=== PATIENT | male | born 1995 | race American Indian/Alaskan Native ===

== ENCOUNTER 2022-05-20 07:43 | Emergency (ER) | payer SELFPAY ==
--- NOTE | 2022-05-20 10:16 | Emergency Department Report ---
ED Abdominal Pain HPI - General Chief Complaint: Nausea/Vomiting/Diarrhea Stated Complaint: VOMITTING/CHILLS/BACK PAIN Time Seen by Provider: 05/20/22 10:05 Source: patient Mode of arrival: Ambulatory Limitations: No Limitations - History of Present Illness Initial Comments: Patient is a 26-year-old male who presented to the emergency room with severe a bdominal pain. He describes it as left side pain. The pain did not seem consistent with that of a kidney stone. He denied any dysuria. He has no history of kidney stones. Denies any penile discharge. He also had nausea and vomiting. He was writhing on arrival. He also had rigors when he got here. His vital signs in triage were normal. Given his rigors I had the nurses repeat the vitals and he still had no fever. Patient denies having had any abdominal pain such as this in the past. He denies prior abdominal surgeries. Denies fever at home. Denies diarrhea or constipation. Patient does not have a PCP. Patient is on no home medications. -: Gradual, hour(s) Severity scale (0 -10): 10 Quality: aching Consistency: constant Improves With: nothing Worsens With: nothing Associated Symptoms: denies other symptoms, nausea, vomiting. denies: diarrhea, fever, chills, constipation, dysuria, hematemesis, hematochezia, melena, hematuria, anorexia, syncope - Related Data Allergies Allergy/AdvReac Type Severity Reaction Status Date / Time No Known Allergies Allergy Verified 05/20/22 07:48 ED Review of Systems ROS: Stated complaint: VOMITTING/CHILLS/BACK PAIN Other details as noted in HPI Comment: All other systems reviewed and negative ED Past Medical Hx - Past Medical History Previous Medical History?: No - Surgical History Past Surgical History?: No - Family History Family history: other (Father of cardiomyopathy, mother is alive) - Social History Smoking Status: Current Every Day Smoker Substance Use Type: Marijuana (Patient denies anything other than marijuana), Ot her (Denies alcohol use) ED Physical Exam - General Limitations: No Limitations General appearance: alert, in no apparent distress - Head Head exam: Present: atraumatic, normocephalic - Eye Eye exam: Present: normal appearance - ENT ENT exam: Present: mucous membranes moist - Neck Neck exam: Present: normal inspection - Respiratory Respiratory exam: Present: normal lung sounds bilaterally. Absent: respiratory distress - Cardiovascular Cardiovascular Exam: Present: regular rate, normal rhythm. Absent: systolic murmur, diastolic murmur, rubs, gallop - GI/Abdominal GI/Abdominal exam: Present: soft, tenderness, guarding, diminished bowel sounds - Rectal Rectal exam: Present: deferred - Extremities Exam Extremities exam: Present: normal inspection - Back Exam Back exam: Present: normal inspection - Neurological Exam Neurological exam: Present: alert, oriented X3 - Psychiatric Psychiatric exam: Present: normal affect, normal mood - Skin Skin exam: Present: warm, dry, intact, normal color. Absent: rash ED Course Vital Signs 05/20/22 05/20/22 05/20/22 07:44 10:51 11:48 Temperature 98.3 F 98.9 F Pulse Rate 63 78 Respiratory 16 18 Rate Blood Pressure 132/77 107/51 [Right] O2 Sat by Pulse 100 98 98 Oximetry - Reevaluation(s) Reevaluation #1: 05/20/22 14:[address] Freitas Reevaluation #2: 05/20/22 14:30 Dr. Mattson at bedside ED Medical Decision Making - Lab Data Result diagrams: 05/20/22 10:32 05/20/22 10:32 - Radiology Data Radiology results: report reviewed, image reviewed See report - Medical Decision Making Labs 05/20/22 05/20/22 05/20/22 10:20 10:20 10:32 WBC 17.9 H RBC 4.58 Hgb 15.8 H Hct 45.5 MCV 99 H MCH 35 H MCHC 35 H RDW 13.3 Plt Count 260 Add Manual Diff Complete Total Counted 100 Seg Neutrophils % First Coat Sander Seg Neuts % (Manual) 85.0 H Band Neutrophils % 1.0 Lymphocytes % (Manual) 5.0 L Reactive Lymphs % (Man) 1.0 Monocytes % (Manual) 8.0 H Eosinophils % (Manual) 0 Basophils % (Manual) 0 Metamyelocytes % 0 Myelocytes % 0 Promyelocytes % 0 Blast Cells % 0 Nucleated RBC % Not Reportable Seg Neutrophils # Man 15.2 H Band Neutrophils # 0.2 Lymphocytes # (Manual) 0.9 L Abs React Lymphs (Man) 0.2 Monocytes # (Manual) 1.4 H Eosinophils # (Manual) 0.0 Basophils # (Manual) 0.0 Metamyelocytes # 0.0 Myelocytes # 0.0 Promyelocytes # 0.0 Blast Cells # 0.0 WBC Morphology Not Reportable Hypersegmented Neuts Not Reportable Hyposegmented Neuts Not Reportable Hypogranular Neuts Not Reportable Smudge Cells Not Reportable Toxic Granulation Not Reportable Toxic Vacuolation Not Reportable Dohle Bodies Not Reportable Pelger-Huet Anomaly Not Reportable Marli Rods Not Reportable Platelet Estimate Consistent w auto Clumped Platelets Not Reportable Plt Clumps, EDTA Not Reportable Large Platelets Not Reportable Giant Platelets Not Reportable Platelet Satelliting Not Reportable Plt Morphology Comment Not Reportable RBC Morphology Normal Dimorphic RBCs Not Reportable Polychromasia Not Reportable Hypochromasia Not Reportable Poikilocytosis Not Reportable Anisocytosis Not Reportable Microcytosis Not Reportable Macrocytosis Not Reportable Spherocytes Not Reportable Pappenheimer Bodies Not Reportable Sickle Cells Not Reportable Target Cells Not Reportable Tear Drop Cells Not Reportable Ovalocytes Not Reportable Helmet Cells Not Reportable Aguilar-Moncure Bodies Not Reportable [place] Rings Not Reportable [place] Cells Not Reportable Bite Cells Not Reportable Crenated Cell Not Reportable Elliptocytes Not Reportable Acanthocytes (Spur) Not Reportable Rouleaux Not Reportable Hemoglobin C Crystals Not Reportable Schistocytes Not Reportable Malaria parasites Not Reportable Gerry Bodies Not Reportable Hem Pathologist Commnt No Sodium Potassium Chloride Carbon Dioxide Anion Gap BUN Creatinine Estimated GFR BUN/Creatinine Ratio Glucose Calcium Total Bilirubin AST ALT Alkaline Phosphatase Total Creatine Kinase Total Protein Albumin Albumin/Globulin Ratio Lipase Urine Color Yellow Urine Turbidity Slightly-cloudy Urine pH 7.0 Ur Specific Phil[place] 1.019 Urine Protein 30 mg/dl Urine Glucose (UA) Neg Urine Ketones Tr Urine Blood Mod Urine Nitrite Neg Urine Bilirubin Neg Urine Urobilinogen 4.0 Ur Leukocyte Esterase Neg Urine WBC (Auto) 1.0 Urine RBC (Auto) 117.0 U Epithel Cells (Auto) < 1.0 Calcium Oxalate Crystal Few Urine Mucus 3+ Urine Opiates Screen Negative Urine Methadone Screen Negative Ur Barbiturates Screen Negative Ur Phencyclidine Scrn Negative Ur Amphetamines Screen Positive U Benzodiazepines Scrn Negative Urine Cocaine Screen Negative U Marijuana (THC) Screen Positive Drugs of Abuse Note Disclamer 05/20/22 05/20/22 10:32 10:32 WBC RBC Hgb Hct MCV MCH MCHC RDW Plt Count Add Manual Diff Total Counted Seg Neutrophils % Seg Neuts % (Manual) Band Neutrophils % Lymphocytes % (Manual) Reactive Lymphs % (Man) Monocytes % (Manual) Eosinophils % (Manual) Basophils % (Manual) Metamyelocytes % Myelocytes % Promyelocytes % Blast Cells % Nucleated RBC % Seg Neutrophils # Man Band Neutrophils # Lymphocytes # (Manual) Abs React Lymphs (Man) Monocytes # (Manual) Eosinophils # (Manual) Basophils # (Manual) Metamyelocytes # Myelocytes # Promyelocytes # Blast Cells # WBC Morphology Hypersegmented Neuts Hyposegmented Neuts Hypogranular Neuts Smudge Cells Toxic Granulation Toxic Vacuolation Dohle Bodies Pelger-Huet Anomaly Marli Rods Platelet Estimate Clumped Platelets Plt Clumps, EDTA Large Platelets Giant Platelets Platelet Satelliting Plt Morphology Comment RBC Morphology Dimorphic RBCs Polychromasia Hypochromasia Poikilocytosis Anisocytosis Microcytosis Macrocytosis Spherocytes Pappenheimer Bodies Sickle Cells Target Cells Tear Drop Cells Ovalocytes Helmet Cells Aguilar-Moncure Bodies [place] Rings [place] Cells Bite Cells Crenated Cell Elliptocytes Acanthocytes (Spur) Rouleaux Hemoglobin C Crystals Schistocytes Malaria parasites Gerry Bodies Hem Pathologist Commnt Sodium 138 Potassium 4.3 Chloride 99.1 Carbon Dioxide 27 Anion Gap 16 BUN 15 Creatinine 0.8 Estimated GFR > 60 BUN/Creatinine Ratio 19 Glucose 98 Calcium 10.2 Total Bilirubin 3.50 H AST 25 ALT 19 Alkaline Phosphatase 62 Total Creatine Kinase 156 Total Protein 7.4 Albumin 5.1 H Albumin/Globulin Ratio 2.2 Lipase 16 Urine Color Urine Turbidity Urine pH Ur Specific Phil[place] Urine Protein Urine Glucose (UA) Urine Ketones Urine Blood Urine Nitrite Urine Bilirubin Urine Urobilinogen Ur Leukocyte Esterase Urine WBC (Auto) Urine RBC (Auto) U Epithel Cells (Auto) Calcium Oxalate Crystal Urine Mucus Urine Opiates Screen Urine Methadone Screen Ur Barbiturates Screen Ur Phencyclidine Scrn Ur Amphetamines Screen U Benzodiazepines Scrn Urine Cocaine Screen U Marijuana (THC) Screen Drugs of Abuse Note Vital Signs 05/20/22 05/20/22 05/20/22 07:44 10:51 11:48 Temperature 98.3 F 98.9 F Pulse Rate 63 78 Respiratory 16 18 Rate Blood Pressure 132/77 107/51 [Right] O2 Sat by Pulse 100 98 98 Oximetry Labs noted. WBC elevated. UA noted. 2 L of normal saline, morphine, Zofran, And cefepime given. CT noted Staffed with Dr. Mustapha Torres has come to the bedside and evaluated the patient. He is can have a serial CT scan at 1630. 1451 patient has left AMA. He has been advised not to leave. He knows that he has a life-threatening condition that could result in perforation of his bowel resulting in imminent . He states that such as he has to take. AMA form signed and filed by nursing staff. - Differential Diagnosis Rule out kidney stone, cholecystitis, bowel obstruction/perforation Critical care attestation.: If time is entered above; I have spent that time in minutes in the direct care of this critically ill patient, excluding procedure time. ED Disposition Clinical Impression: Intussusception of intestine Disposition: LEFT AGAINST MEDICAL ADVICE Is pt being admited?: No Does the pt Need Aspirin: No Condition: Stable Referrals: PRIMARY CARE, [Primary Care Provider] - 3-5 Days Time of Disposition: 14:29
[2022-05-20 10:52] VITALS: BP 107/51
[2022-05-20] MEDS ORDERED: SODIUM CHLORIDE 0.9% 1000 ML 1,000 ML IV ONE (11:00)
[2022-05-20 11:10] LABS: Hematocrit 45.5 % (35.5-45.6); Hemoglobin 15.8 gm/dl (11.8-15.2); Mean Corpuscular HGB Conc 35 % (32-34); Mean Corpuscular Volume 99 fl (84-94); Platelet Count 260 K/mm3 (140-440); Red Blood Count 4.58 M/mm3 (3.65-5.03); Red Cell Distribution Width 13.3 % (13.2-15.2)
[2022-05-20 11:23] LABS: Alanine Aminotransferase 19 units/L (7-56); Albumin 5.1 g/dL (3.9-5); BUN/Creatinine Ratio 19; Blood Urea Nitrogen 15 mg/dL (9-20); Calcium 10.2 mg/dL (8.4-10.2); Hemolysis Index 13
[2022-05-20] MEDS ORDERED: SODIUM CHLORIDE 0.9% 1000 ML IV SOLN IV SCH (11:32)
[2022-05-20] MEDS ORDERED: CEFEPIME/NS 2 GM/100 ML 2 GM/100 ML BAG IV ONE (11:32)
[2022-05-20 11:45] LABS: Benzodiazepines Screen,Urine Negative; Cocaine Screen,Urine Negative; Methadone Screen,Urine Negative; Opiate Screen,Urine Negative
[2022-05-20 11:47] LABS: Bilirubin,Urine NEG (Negative); Blood,Urine MOD (Negative); Color,Urine Yellow (Yellow)
[2022-05-20 11:57] LABS: Band Neutrophils # (Manual) 0.2 K/mm3; Basophils % (Manual) 0 % (0.0-1.8); Eosinophils % (Manual) 0 % (0.0-4.3); Total Cells Counted 100
[2022-05-20 12:00] LABS: Platelet Estimate Consistent w Auto; RBC Morphology Normal
[2022-05-20 12:03] LABS: Calcium Oxalate Crystals,Urine FEW; Mucus,Urine 3+ /HPF
[2022-05-20 12:07] LABS: Amphetamine Screen,Urine Positive; Cannabinoid Screen,Urine Positive
--- NOTE | 2022-05-20 13:57 | Cat Scan Report ---
CT abdomen pelvis w con INDICATION / CLINICAL INFORMATION: ABD PAIN WITH INC WBC. TECHNIQUE: Axial CT images were obtained through the abdomen and pelvis after 100 cc of Omnipaque [address] scans at this location are performed using CT dose reduction for ALARA by means of automated exposure control. COMPARISON: None available. FINDINGS: LOWER CHEST: No significant abnormality LIVER: No significant abnormality GALLBLADDER/BILIARY TREE: There is cholelithiasis, to include 1.2 cm stone at the neck of the gallbla dder. Further evaluation of the gallbladder is limited due to contraction. No biliary dilatation. PANCREAS: No significant abnormality SPLEEN: No significant abnormality ADRENALS: No significant abnormality RIGHT KIDNEY / URETER: No significant abnormality LEFT KIDNEY / URETER: No significant abnormality URINARY BLADDER: No significant abnormality REPRODUCTIVE ORGANS: No significant abnormality STOMACH / BOWEL: There is small bowel-small bowel intussusception in the left abdomen. There is no ev idence of bowel obstruction. Remainder of the bowel is unremarkable. Normal appendix is seen. LYMPH NODES: No significant adenopathy. VASCULATURE: No significant abnormality. OTHER: No free air, free fluid, or focal fluid collection is identified. SKELETAL SYSTEM: No acute osseous findings. IMPRESSION: 1. Small bowel-small bowel intussusception, which could be transitory, possibly related to enteritis. No definite pathologic lead point identified. Recommend short-term CT follow-up to see if this findi ng persists. 2. Cholelithiasis. The gallbladder is contracted without findings of acute cholecystitis. 3. Other incidental findings as above. Signer Name: Tato Hubbard MD Signed: 05/20/2022 1:53 PM Workstation Name: [email or web address]
[2022-05-20] MEDS ORDERED: MORPHINE 4 MG/1 ML INJ IV ONE (14:23)
[2022-05-20] MEDS ORDERED: ONDANSETRON 4 MG/2 ML INJ IV ONE (14:24)
--- NOTE | 2022-05-20 15:53 | Consultation ---
History of Present Illness Consult date: 05/20/22 Reason for consult: abdominal pain Chief complaint: abd pain - History of present illness History of present illness: 26 yo M with no PMHx who presents to ER with 1 day of worsening LLQ abdominal pain. The pain felt sharp and did not radiate. He states he has had similar pain but it has always been on the right hand side. He had multiple episodes of nausea and NB/NB emesis 2/2 pain. He states he may have eaten bad fast food. He has been having BMs which are slighly loose for the last 2 days. No f/c. No cp, sob. W/u including Ct scan A/P revealed small bowel intussusception in LLQ. His pain is now completely resolved. He felt much better after receiving IV fluids. Past History Past Medical History: No medical history Past Surgical History: No surgical history Social history: no significant social history Family history: no significant family history Medications and Allergies Allergies Allergy/AdvReac Type Severity Reaction Status Date / Time No Known Allergies Allergy Verified 05/20/22 07:48 Review of Systems All systems: negative (10 point ROS performed and negative except for that listed in HPI) Exam Vital Signs Temp Pulse Resp BP Pulse Ox 98.3 F 63 16 132/77 100 05/20/22 07:44 05/20/22 07:44 05/20/22 07:44 05/20/22 07:44 05/20/22 07:44 Narrative exam: Gen.: Awake, alert, oriented x3. No apparent distress ENT: Trachea midline. No lymphadenopathy. No scleral icterus or conjunctival pallor CV: S1, S2 present Respiratory: No audible wheezes Abdomen: Soft, nondistended, nontender. No rebound, rigidity, guarding Extremities: No clubbing, cyanosis, edema Results - Labs 05/20/22 10:32 05/20/22 10:32 Abnormal lab results 05/20/22 05/20/22 Range/Units 10:32 10:32 WBC 17.9 H (4.5-11.0) K/mm3 Hgb 15.8 H (11.8-15.2) gm/dl MCV 99 H (84-94) fl MCH 35 H (28-32) pg MCHC 35 H (32-34) % Seg Neuts % (Manual) 85.0 H (40.0-70.0) % Lymphocytes % (Manual) 5.0 L (13.4-35.0) % Monocytes % (Manual) 8.0 H (0.0-7.3) % Seg Neutrophils # Man 15.2 H (1.8-7.7) K/mm3 Lymphocytes # (Manual) 0.9 L (1.2-5.4) K/mm3 Monocytes # (Manual) 1.4 H (0.0-0.8) K/mm3 Total Bilirubin 3.50 H (0.1-1.2) mg/dL Albumin 5.1 H (3.9-5) g/dL Diabetes panel 05/20/22 Range/Units 10:32 Sodium 138 (137-145) mmol/L Potassium 4.3 (3.6-5.0) mmol/L Chloride 99.1 (98-107) mmol/L Carbon Dioxide 27 (22-30) mmol/L BUN 15 (9-20) mg/dL Creatinine 0.8 (0.8-1.3) mg/dL Glucose 98 (75-100) mg/dL Calcium 10.2 (8.4-10.2) mg/dL AST 25 (5-40) units/L ALT 19 (7-56) units/L Alkaline Phosphatase 62 (35-129) units/L Total Protein 7.4 (6.3-8.2) g/dL Albumin 5.1 H (3.9-5) g/dL Calcium panel 05/20/22 Range/Units 10:32 Calcium 10.2 (8.4-10.2) mg/dL Albumin 5.1 H (3.9-5) g/dL Pituitary panel 05/20/22 Range/Units 10:32 Sodium 138 (137-145) mmol/L Potassium 4.3 (3.6-5.0) mmol/L Chloride 99.1 (98-107) mmol/L Carbon Dioxide 27 (22-30) mmol/L BUN 15 (9-20) mg/dL Creatinine 0.8 (0.8-1.3) mg/dL Glucose 98 (75-100) mg/dL Calcium 10.2 (8.4-10.2) mg/dL Adrenal panel 05/20/22 Range/Units 10:32 Sodium 138 (137-145) mmol/L Potassium 4.3 (3.6-5.0) mmol/L Chloride 99.1 (98-107) mmol/L Carbon Dioxide 27 (22-30) mmol/L BUN 15 (9-20) mg/dL Creatinine 0.8 (0.8-1.3) mg/dL Glucose 98 (75-100) mg/dL Calcium 10.2 (8.4-10.2) mg/dL Total Bilirubin 3.50 H (0.1-1.2) mg/dL AST 25 (5-40) units/L ALT 19 (7-56) units/L Alkaline Phosphatase 62 (35-129) units/L Total Protein 7.4 (6.3-8.2) g/dL Albumin 5.1 H (3.9-5) g/dL Assessment and Plan 26 yo M with small bowel/small bowel intussusception without obstruction or lead point, likely peristalsis Plan: 1. Repeat Ct A/P in 2 hours to reeval bowel 2. Ok to dc home if CT shows resolution Thank you, please call with questions.
== END 2022-05-20 14:55 | disposition left against medical advice (07) ==
LOC: ED 07:43
DX: K56.1 Intussusception (principal); F17.200 Nicotine dependence, unspecified, uncomplicated; F12.90 Cannabis use, unspecified, uncomplicated; Z79.899 Other long term (current) drug therapy
CPT/HCPCS: 36415; 74177; 80053; 80307; 81001; 82550; 83690; 85007; 85025; 96361; 96365; 99284; J0692; Q9967; J2270; J2405